=== PATIENT | male | born 1975 | race Two or more races ===

== ENCOUNTER 2017-10-09 10:15 | Inpatient (IN) | payer SELFPAY ==
[~2017-10-09] VITALS: Ht 165.1 cm; Wt 90.7 kg
[2017-10-09] MEDS ORDERED: fentaNYL PF VIAL 100 MCG/2 ML VIAL IV ONE (11:15)
[2017-10-09] MEDS ORDERED: IV NORMAL SALINE 1000ML BAG 1,000 ML IV ONE (11:15)
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
[2017-10-09 11:24] LABS: BASO % 1 % (0-3); EOS % 0 % (0-3); HEMATOCRIT 48.8 % (39.0-53.0); HEMOGLOBIN 17.3 g/dL (13.0-17.5); LYMPH # 1.8 x10^3/uL (1.0-4.8); LYMPH % 22 % (24-48); MEAN CORPUSCULAR HEMOGLOBIN 34 pg (25-35); MEAN CORPUSCULAR HGB CONC 35 g/dL (31-37); MEAN CORPUSCULAR VOLUME 95 fL (79-100); MONO # 0.7 x10^3/uL (0.0-1.1); MONO % 9 % (0-9); NEUT # 5.8 x10^3uL (1.8-7.7); NEUT % 69 % (31-73); PLATELET COUNT 167 x10^3/uL (140-400); RED BLOOD COUNT 5.13 x10^6/uL (4.30-5.70); RED CELL DISTRIBUTION WIDTH 12.5 % (11.5-14.5); WHITE BLOOD COUNT 8.4 x10^3/uL (4.0-11.0)
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
[2017-10-09 11:32] LABS: CALCIUM 9.2 mg/dL (8.5-10.1); CREATININE 0.9 mg/dL (0.7-1.3); GFR 92.1; POTASSIUM 3.9 mmol/L (3.5-5.1)
[2017-10-09 11:38] LABS: ALBUMIN 4.1 g/dL (3.4-5.0); ALBUMIN/GLOBULIN RATIO 1.1 (1.0-1.7); TOTAL BILIRUBIN 2.1 mg/dL (0.2-1.0)
[2017-10-09] MEDS ORDERED: IOHEXOL 300 MG/ML 100ML VIAL. IV ONE (12:00)
[2017-10-09 12:01] LABS: BILIRUBIN,URINE NEGATIVE (NEG); CLARITY,URINE CLEAR; COLOR,URINE YELLOW; NITRITE,URINE NEGATIVE (NEG); PROTEIN,URINE NEGATIVE (NEG-TRACE)
[2017-10-09 12:13] LABS: BACTERIA,URINE FEW /HPF (0-FEW); RBC,URINE OCC /HPF (0-2); WBC,URINE RARE /HPF (0-4)
[2017-10-09] MEDS ORDERED: CONTRAST GIVEN. MC PRN (12:15)
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
[2017-10-09] MEDS ORDERED: fentaNYL PF VIAL 100 MCG/2 ML VIAL IV PRN ×2 (14:30→15:45)
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
[2017-10-09] MEDS ORDERED: oxyCODONE/APAP 5/325 1 TAB TABLET PO PRN (15:45)
[2017-10-09] MEDS ORDERED: ACETAMINOPHEN 500 MG TABLET PO PRN (15:45)
[2017-10-09] MEDS ORDERED: chlordiazePOXIDE HCL 25 MG CAPSULE PO PRN (15:45)
[2017-10-09] MEDS ORDERED: ONDANSETRON PF 4 MG/2 ML VIAL. IV PRN (15:45)
[2017-10-09] MEDS ORDERED: ONDANSETRON ODT 4 MG TAB.RAPDIS. PO PRN (15:45)
[2017-10-09] MEDS ORDERED: NICOTINE 21MG PATCH. TD PRN (15:45)
[2017-10-09] MEDS ORDERED: diphenhydrAMINE HCL 25 MG CAPSULE PO PRN (15:45)
[2017-10-09 15:50] VITALS: BP 129/93
[2017-10-09] MEDS: oxyCODONE/APAP 10/325 1 TAB TABLET PO PRN ×2 (16:05→20:44)
--- NOTE | 2017-10-09 18:51 | EKG ---
[facility] [address] [place] [address] Test Date: 2017-10-09 Test Time: 11:41:44 Pat Name: GE MONAHAN Department: Room: 424 Gender: M Local Delivery Truck Driver: : [id number] Requested By: ASHLEY HOLDER Order Number: [id number] Reading MD: Bry Philippe MD Measurements Intervals [place] Rate: 78 P: 33 ND: 124 QRS: 20 QRSD: 80 T: 138 QT: 392 QTc: 451 Interpretive Statements SINUS RHYTHM LVH Electronically Signed On 10-10-2017 10:49:33 CDT by Bry Philippe MD
[2017-10-09 19:00] VITALS: BP 140/99
[2017-10-09] MEDS ORDERED: PATCH REMOVAL. MC SCH (21:00)
[2017-10-09 22:51] VITALS: BP 129/83
[2017-10-10 03:00] VITALS: BP 138/88
[2017-10-10 05:24] LABS: BASO % 0 % (0-3); EOS % 1 % (0-3); HEMATOCRIT 43.1 % (39.0-53.0); HEMOGLOBIN 15.2 g/dL (13.0-17.5); LYMPH # 1.3 x10^3/uL (1.0-4.8); LYMPH % 17 % (24-48); MEAN CORPUSCULAR HEMOGLOBIN 34 pg (25-35); MEAN CORPUSCULAR HGB CONC 35 g/dL (31-37); MEAN CORPUSCULAR VOLUME 95 fL (79-100); MONO # 0.5 x10^3/uL (0.0-1.1); MONO % 6 % (0-9); NEUT # 5.7 x10^3uL (1.8-7.7); NEUT % 76 % (31-73); PLATELET COUNT 116 x10^3/uL (140-400); RED BLOOD COUNT 4.52 x10^6/uL (4.30-5.70); RED CELL DISTRIBUTION WIDTH 12.7 % (11.5-14.5); WHITE BLOOD COUNT 7.5 x10^3/uL (4.0-11.0)
[2017-10-10 05:48] LABS: ALBUMIN 3.2 g/dL (3.4-5.0); ALBUMIN/GLOBULIN RATIO 0.9 (1.0-1.7); CALCIUM 8.6 mg/dL (8.5-10.1); CREATININE 0.8 mg/dL (0.7-1.3); GFR 105.5; POTASSIUM 4.1 mmol/L (3.5-5.1); TOTAL BILIRUBIN 0.6 mg/dL (0.2-1.0); TOTAL PROTEIN 6.7 g/dL (6.4-8.2)
[2017-10-10 07:00] VITALS: BP 131/83
[2017-10-10] MEDS: oxyCODONE/APAP 10/325 1 TAB TABLET PO PRN (08:17)
[2017-10-10] MEDS ORDERED: MULTIVITAMIN with MINERAL TABLET. PO SCH (09:00)
[2017-10-10] MEDS ORDERED: LIDOCAINE (700MG/PATCH) PATCH. TD SCH (09:00)
[2017-10-10] MEDS ORDERED: FOLIC ACID 1 MG TABLET. PO SCH (09:00)
[2017-10-10] MEDS ORDERED: THIAMINE 100 MG TABLET. PO SCH (09:00)
--- NOTE | 2017-10-10 09:06 | RAD ---
CHEST PA LATERAL dated 10/10/2017 5:00 AM. Comparison: 10/09/2017 Clinical Indication: Follow-up pneumothorax.. Findings: PA and lateral views were obtained. Heart and mediastinal contours are stable. There is patchy and linear opacity at the left lung base, similar slightly increased from prior study. No definite pleural effusion. No apparent pneumothorax. Impression: 1. Patchy left basilar opacity, mildly increased from prior study, pulmonary contusion versus atelectasis. 2. The previous described small pneumothorax on the right is no longer apparent. Electronically signed by: Christpoher Johnson MD (10/10/2017 9:03 AM) [id number]
[2017-10-10 11:00] VITALS: BP 133/87
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
[2017-10-10] MEDS ORDERED: METH4TAB2 PO (12:41)
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
[2017-10-10] MEDS ORDERED: NAPR220C4 PO (12:42)
[2017-10-10] MEDS ORDERED: CYCL10TA2 PO (12:43)
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
[2017-10-10 15:00] VITALS: BP 136/89
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
== END 2017-10-10 16:40 | disposition home or self-care (01) | DRG 200 ==
LOC: ER 10:15 → 4 NORTH 15:10
PROVIDERS: ADMIT Internal Medicine; ATTEND Internal Medicine
DX: S27.0XXA Traumatic pneumothorax, initial encounter (principal); S32.029A Unspecified fracture of second lumbar vertebra, initial encounter for closed fracture; S32.039A Unspecified fracture of third lumbar vertebra, initial encounter for closed fracture; S32.049A Unspecified fracture of fourth lumbar vertebra, initial encounter for closed fracture; S22.059A Unspecified fracture of T5-T6 vertebra, initial encounter for closed fracture; S27.321A Contusion of lung, unilateral, initial encounter; J98.11 Atelectasis; S20.319A Abrasion of unspecified front wall of thorax, initial encounter; F17.210 Nicotine dependence, cigarettes, uncomplicated; K76.0 Fatty (change of) liver, not elsewhere classified; S23.3XXA Sprain of ligaments of thoracic spine, initial encounter; M51.26 Other intervertebral disc displacement, lumbar region; Y92.410 Unspecified street and highway as the place of occurrence of the external cause; V86.55XA Driver of 3- or 4- wheeled all-terrain vehicle (ATV) injured in nontraffic accident, initial encounter; Y93.89 Activity, other specified; Y99.8 Other external cause status
CPT/HCPCS: 36415; 70450; 71045; 71046; 71260; 72125; 74177; 80053; 81001; 83690; 84484; 85025; 85610; 85730; 93005; 96360; 96361; G0480; J3010; J7030; Q9967; 99285-25